=== PATIENT | female | born 1985 | race Caucasian/White ===

== ENCOUNTER 2021-08-29 11:57 | Emergency (ER) | payer MEDICAID ==
[~2021-08-29] VITALS: Ht 162.6 cm; Wt 68.0 kg
[2021-08-29] MEDS ORDERED: KETOROLAC 60 MG/2 ML VIAL. IM ONE (12:45)
[2021-08-29 13:17] VITALS: BP 140/69
--- NOTE | 2021-08-29 13:38 | PHYS DOC ---
Past Medical History Past Surgical History: No Surgical History General Adult EDM: Chief Complaint: FOOT INJURY PAIN HPI: HPI: Patient is a 35 year old female who presents with right foot pain that began last night. Patient reports the pain came on somewhat suddenly and was very intense. She took ibuprofen, which did help alleviate the pain some. This morning, she woke up and the pain was worse than last night. Patient denies any injury or trauma to the foot. She denies any obvious swelling. Walking, especially on stairs, exacerbates her pain. Patient has no other complaints at this time. Review of Systems: Review of Systems: ROS negative except as mentioned in HPI. Heart Score: C/O Chest Pain: No Current Medications: Current Medications Medications (Trade) Dose Ordered Sig/Ivan Start Time Stop Time Status Last Admin Dose Admin Ketorolac Tromethamine (Toradol Im) 60 mg 1X ONCE 08/29/21 12:45 08/29/21 13:06 DC 08/29/21 13:19 60 MG Allergies: Allergies: Allergies Coded Allergies Type Severity Reaction Last Updated Verified No Known Drug Allergies 08/29/21 No Physical Exam: PE: Constitutional: Well developed, well nourished, no acute distress, non-toxic appearance. Cardiovascular: Heart rate regular rhythm, no murmur. Lungs & Thorax: Bilateral breath sounds clear to auscultation. Skin: Warm, dry, no erythema, no rash. Extremities: Right foot is tender on the dorsal and lateral aspects without obvious deformity, swelling, erythema; both active and passive range of motion intact, including great toe dorsiflexion; neurovascular intact. Extremities otherwise no tenderness, no cyanosis, no clubbing, ROM intact, no edema, neurovascular intact. Neurologic: Alert and oriented x4, normal motor function, normal sensory function, no focal deficits noted. Current Patient Data: Vital Signs: Vital Signs Date Time Temp Pulse Resp B/P (MAP) Pulse Ox O2 Delivery O2 Flow Rate FiO2 08/29/21 13:17 97.7 91 16 140/69 (92) 100 Room Air 97.7 Radiology/Procedures: Radiology/Procedures: PROCEDURE: FOOT RIGHT 3V Site ID: [id number] EXAMINATION: XR FOOT_RIGHT 3 VIEWS. HISTORY: 35 years Female Reason: pain, medial pain, no recent injury COMPARISON: None. FINDINGS: No fracture, dislocation or radiopaque foreign body. The joint spaces and articular surfaces appear unremarkable. IMPRESSION: Unremarkable exam. Electronically signed by: Leon Hameed MD (08/29/2021 1:37 PM) [id number] Course & Med Decision Making: Course & Med Decision Making Pertinent Labs and Imaging studies reviewed. (See chart for details) 35-year-old female patient presents with nontraumatic right foot pain that began last night. Plain films ordered to evaluate for any bony injury or other calcifications. Plain imaging does not show any acute fracture, dislocation or other bony abnormality. Patient will be provided with referral for podiatry for further e valuation and management of her pain. She can continue taking [id number] NSAIDs for pain control. Patient understands and is agreeable to discharge plan. Dragon Disclaimer: Dragon Disclaimer: This electronic medical record was generated, in whole or in part, using a voice recognition dictation system. Departure Departure Impression: Primary Impression: Foot pain, right Disposition: 01 HOME / SELF CARE / HOMELESS Condition: STABLE Referrals: UNKNOWN PCP NAME (PCP) MAHAMED ATKINSON DPM Patient Instructions: RICE - Routine Care for Injuries, [place] ADWOA EM Aug 29, 2021 13:38
--- NOTE | 2021-08-29 13:39 | RAD ---
Site ID: [id number] EXAMINATION: XR FOOT_RIGHT 3 VIEWS. HISTORY: 35 years Female Reason: pain, medial pain, no recent injury COMPARISON: None. FINDINGS: No fracture, dislocation or radiopaque foreign body. The joint spaces and articular surfaces appea r unremarkable. IMPRESSION: Unremarkable exam. Electronically signed by: Leon Hameed MD (08/29/2021 1:37 PM) [id number]
== END 2021-08-29 14:33 | disposition home or self-care (01) ==
LOC: ER 11:57
DX: M79.671 Pain in right foot (principal)
CPT/HCPCS: 73630; 96372; 99283; J1885

== ENCOUNTER 2021-12-19 21:55 | Emergency (ER) | payer MEDICAID ==
[~2021-12-19] VITALS: Ht 165.1 cm; Wt 73.0 kg
--- NOTE | 2021-12-19 22:55 | PHYS DOC ---
Past Medical History Past Surgical History: No Surgical History Smoking Status: Never Smoker Alcohol Use: None General Adult EDM: Chief Complaint: OVERDOSE HPI: HPI: Patient is a 36 year old female who presents with possible drug overdose. She states that she was given a blue pill by a friend to take for her back pain. This is similar to the blue pills that have been taken by multiple patients today that has resulted them and becoming overdosed on some form of narcotic requiring large doses of Narcan. The patient herself was given Narcan by EMS upon which she promptly woke. She feels fine currently. No chest pain shortness of breath or headache. Denies any trauma to her body. Review of Systems: Review of Systems: Constitutional: Denies fever or chills. [] Eyes: Denies change in visual acuity. [] HENT: Denies nasal congestion or sore throat. [] Respiratory: Denies cough or shortness of breath. [] Cardiovascular: Denies chest pain or edema. Positive for loss of consciousness [] GI: Denies abdominal pain, nausea, vomiting, bloody stools or diarrhea. [] : Denies dysuria. [] Musculoskeletal: Denies back pain or joint pain. [] Integument: Denies rash. [] Neurologic: Denies headache, focal weakness or sensory changes. [] Endocrine: Denies polyuria or polydipsia. [] Lymphatic: Denies swollen glands. [] Psychiatric: Denies depression or anxiety. [] Heart Score: C/O Chest Pain: No Risk Factors: Risk Factors: DM, Current or recent (<one month) smoker, HTN, HLP, family history of CAD, obesity. Risk Scores: Score 0 - 3: 2.5% MACE over next 6 weeks - Discharge Home Score 4 - 6: 20.3% MACE over next 6 weeks - Admit for Clinical Observation Score 7 - 10: 72.7% MACE over next 6 weeks - Early Invasive Strategies Allergies: Allergies: Allergies Coded Allergies Type Severity Reaction Last Updated Verified No Known Drug Allergies 12/19/21 No Physical Exam: PE: Constitutional: Well developed, well nourished, no acute distress, non-toxic appearance. [] HENT: Normocephalic, atraumatic, bilateral external ears normal, oropharynx moist, no oral exudates, nose normal. [] Eyes: PERRLA, EOMI, conjunctiva normal, no discharge. [] Neck: Normal range of motion, no tenderness, supple, no stridor. [] Cardiovascular:Heart rate regular rhythm, no murmur [] Lungs & Thorax: Bilateral breath sounds clear to auscultation [] Abdomen: Bowel sounds normal, soft, no tenderness, no masses, no pulsatile masses. [] Skin: Warm, dry, no erythema, no rash. [] Back: No tenderness, no CVA tenderness. [] Extremities: No tenderness, no cyanosis, no clubbing, ROM intact, no edema. [] Neurologic: Alert and oriented X 3, normal motor function, normal sensory function, no focal deficits noted. [] Psychologic: Affect normal, judgement normal, mood normal. [] Current Patient Data: Labs: Laboratory Tests Test 12/19/21 22:15 POC Urine HCG, Qualitative Hcg negative (Negative) Vital Signs: Vital Signs Date Time Temp Pulse Resp B/P (MAP) Pulse Ox O2 Delivery O2 Flow Rate FiO2 12/19/21 22:05 98.1 102 18 133/89 (104) 94 Room Air 98.1 EKG: EKG: [] Radiology/Procedures: Radiology/Procedures: [] Course & Med Decision Making: Course & Med Decision Making Pertinent Labs and Imaging studies reviewed. (See chart for details) Patient woke up from Narcan and was observed in the emergency department for approximately 1 hour. The Narcan is not needed again. The patient is stable and can be followed up outpatient as needed. Told her to stop using random medications including narcotics. Dragon Disclaimer: Dragalon Disclaimer: This electronic medical record was generated, in whole or in part, using a voice recognition dictation system. Departure Departure Impression: Primary Impression: Opioid overdose Disposition: HOME / SELF CARE / HOMELESS Condition: STABLE Referrals: UNKNOWN PCP NAME (PCP) Patient Instructions: Opiate Dependence WIN SELF MD Dec 19, 2021 22:55
[2021-12-19 23:15] VITALS: BP 122/89
== END 2021-12-19 23:30 | disposition home or self-care (01) ==
LOC: ER 21:55
DX: T40.2X1A Poisoning by other opioids, accidental (unintentional), initial encounter (principal); X58.XXXA Exposure to other specified factors, initial encounter; Y93.89 Activity, other specified; Y92.89 Other specified places as the place of occurrence of the external cause; Y99.8 Other external cause status
CPT/HCPCS: 81025; 99283